=== PATIENT | male | born 1935 | race Caucasian/White ===

== ENCOUNTER 2016-07-24 18:37 | Emergency (ER) | payer MEDICARE, BC ==
[2016-07-24 17:51] LABS: BASOPHILS 0.3 %; BASOPHILS ABSOLUTE 0.02 10/3/uL (0.0-0.16); EOSINOPHILS 0.3 %; EOSINOPHILS ABSOLUTE 0.02 10/3/uL (0.0-0.53); ER CBC TAT 0 Hrs 05 Mins; HEMATOCRIT 47.7 % (40.0-51.0); IMMATURE GRANULOCYTES 0.3 %; IMMATURE GRANULOCYTES ABSOLUTE 0.02 10/3/uL (0.0-0.11); LYMPHOCYTES 13.5 %; LYMPHOCYTES ABSOLUTE 1.02 10/3/uL (0.67-4.30); MANUAL DIFF NO %; MEAN CORPUS HGB CONC 33.5 g/dL (32.0-36.0); MEAN CORPUSCULAR HEMOGLOB 32.7 pg (26.0-34.0); MEAN CORPUSCULAR VOLUME 97.5 fL (80-100); MEAN PLATELET VOLUME 10.2 fL (9.2-13.0); MONOCYTES 15.5 %; MONOCYTES ABSOLUTE 1.17 10/3/uL (0.21-1.20); NEUTROPHILS 70.1 %; NEUTROPHILS ABSOLUTE 5.29 10/3/uL (2.02-8.40); PLATELET COUNT 133 10/3/uL (150-400); RBC DISTRIBUTION WIDTH 13.6 % (12.0-16.0); RED CELL COUNT 4.89 10/6/uL (4.7-6.1); WHITE BLOOD CELLS 7.5 10/3/uL (4.5-10.5)
[2016-07-24 18:06] LABS: A/G RATIO 0.9 (0.7-1.9); ALBUMIN 3.8 G/DL (3.5-5.0); ALKALINE PHOSPHATASE 156 U/L (45-117); BUN (BLOOD UREA NITROGEN) 13 MG/DL (6-23); CALCIUM, SERUM 8.4 MG/DL (8.5-10.4); CHLORIDE, SERUM 102 MMOL/L (96-112); CO2 (CARBON DIOXIDE) 24 MMOL/L (24-34); CREATININE 1.14 MG/DL (0.70-1.30); GFR AFRICAN AMERICAN 71 ML/MIN (>=60); GFR NON AFRICAN AMERICAN 61 ML/MIN (>=60); GLOBULIN 4.4 G/DL (2.5-4.1); GLUCOSE, SERUM 110 MG/DL (60-99); POTASSIUM, SERUM 4.6 MMOL/L (3.5-5.3); SGPT(ALT) 42 U/L (5-65); SODIUM, SERUM 135 MMOL/L (135-148); TOTAL BILIRUBIN 0.5 MG/DL (0-1.2); TOTAL PROTEIN 8.2 G/DL (6.0-8.5); TROPONIN I <0.02 NG/ML (<0.05)
[2016-07-24 18:07] LABS: SGOT(AST) 39 U/L (5-40)
[~2016-07-24 18:37] MED LIST: ACETSUP650 PR; ALEVE220 MG PO; ASA5GR PO; ASAB PO; BETAP120 PO; BETAPACE AF80 MG PO; BETAPACE80 PO; BISAC-EVAC PR; BISR PR; BIST PO; BLOOD PRESSURE; C1 PO; C25 PO; C5 PO; CARDCD120 PO; CARTIA XT120 MG/24 PO; CEFT5 PO; CRESTOR10 PO; CRESTOR40 MG PO; D.O.S.100 MG PO; D100 PO; DSS PO; DURICEF PO; FESO4UDL PO; FISH-EPA1000 MG PO; FOLIC ACID400 MC1 PO; FOLIC PO; HALF81 PO; IBU800 PO; IRON325 MG PO; JANTOVEN1 MG PO; JANTOVEN4 MG PO; KLOR-CON M2020 MEQ PO; LEVOTHYROXIN100 MCG PO; LIOR10 PO; LIPITOR80 MG PO; LORCET PO; MAGNESIUM CITRATE; MAGOX4 PO; MAX25 PO; MINTOX PLUS OR; MIRALAXPKT PO; MOMUD PO; MULTIPLE VIT PO; MVI PO; MYLUD PO; NEXIUM20 M1 PO; NEXIUM40 PO; NITROSTAT0.4 MG SL; OXECTA5 MG PO; OXYCON10 PO; PCET PO; PEP20 PO; PLAVIX PO; PR12.5 PO; PREV30 PO; PRILO PO; PROTONIX PO; SACU1TAB7 PO; SENTAB PO; STOOL SOFTEN240 MG PO; SYN1 PO; T PO; TEG200 PO; TRAZODONE150 MG PO; ULTRAM50 PO; VIMPAT100 MG PO; VITAMIN D1000 UNI1 PO; VITAMIN D31000 UNIT PO; XARELTO20 MG PO; Z100 PO; Z300 PO; ZANAFLEX 4 MG TA4 MG PO; ZEGERID1 CAP PO; [UNRECOGNIZED DRUG - OTHER] PO
[2016-07-24 18:53] LABS: INTERNATIONAL NORMAL RATI 2.3 UNITS (-); PARTIAL THROMBO TIME 35.7 SEC (22.5-37.2); PROTIME (NOT ORD) 25.3 SEC (12.0-14.5)
[2016-07-24 18:59] LABS: LACTATE 1.1 MMOL/L (0.3-2.4)
[2016-07-24 19:44] LABS: PROCALCITONIN <0.05 ng/mL (<0.5)
[2016-07-24 19:48] LABS: DILANTIN (PHENYTOIN) < 2.1 MCG/ML (10.0-20.0)
[2016-07-24 19:58] LABS: WBC (NOT ORDERED) (RFLEX) 0 (0-5)
[2016-07-24 20:09] LABS: ASCORBIC ACID (UR NOT ORDER) NEG (NEG); BILIRUBIN, URINE NEGATIVE (NEG); ER URINALYSIS TAT 0 Hrs 13 Mins; KETONE, URINE 20 MG/DL (NEG); LEUKOCYTE ESTERASE(NOT OR NEG (NEG); NITRITE (URINE) NEG (NEG)
== END 2016-07-24 21:02 | disposition home or self-care (01) ==
LOC: ER 18:37
PROVIDERS: Emergency Medicine
DX: G40.909 Epilepsy, unspecified, not intractable, without status epilepticus (principal); J06.9 Acute upper respiratory infection, unspecified; J18.9 Pneumonia, unspecified organism; E05.90 Thyrotoxicosis, unspecified without thyrotoxic crisis or storm; I10 Essential (primary) hypertension; E11.9 Type 2 diabetes mellitus without complications; I25.10 Atherosclerotic heart disease of native coronary artery without angina pectoris; Z86.73 Personal history of transient ischemic attack (TIA), and cerebral infarction without residual deficits; Z88.2 Allergy status to sulfonamides; Z79.82 Long term (current) use of aspirin; Z79.01 Long term (current) use of anticoagulants; Z79.899 Other long term (current) drug therapy
CPT/HCPCS: 71020; 80053; 80156; 80185; 81001; 83605; 84145; 84443; 84484; 85025; 85610; 85730; 87040; 93005; 96374; 99285